=== PATIENT | female | born 1960 | race Caucasian/White ===

== ENCOUNTER 2019-12-29 10:27 | Outpatient (CLI) | payer MEDICARE, SELFPAY ==
--- NOTE | 2019-12-29 10:29 | MM_ITS ---
WS: [id number] BILATERAL DIGITAL DIAGNOSTIC MAMMOGRAM MAMMOGRAPHY WITH CAD CLINICAL INFORMATION: HX OF BREAST CA HISTORY: Right breast pain COMPARISON: TECHNIQUE: Bilateral CC, MLO, and ML views. FINDINGS: Scattered fibroglandular densities bilaterally. Lucent centered calcification. Asymmetric density rig ht breast along the posterior nipple line appears new or progressed from previous. Recommend spot com pression views and ultrasound for further evaluation. Left breast is unchanged. Treatment-related changes right breast. MM/[place] [id number] IMPRESSION: BI-RADS: 0-Incomplete: Need additional imaging evaluation FOLLOW UP: Need Additional Imaging
== END 2019-12-29 10:28 | disposition home or self-care (01) ==
LOC: RADSHAW 10:27
PROVIDERS: Family Provider Family Medicine; PCP Family Medicine; Visit Provider Family Medicine
DX: Z85.3 Personal history of malignant neoplasm of breast (principal)
CPT/HCPCS: 77066

== ENCOUNTER 2020-01-15 10:32 | Outpatient (CLI) | payer MEDICARE, MEDICAID, SELFPAY ==
--- NOTE | 2020-01-15 10:41 | US_ITS ---
WS: [id number] RIGHT DIGITAL MAMMOGRAPHY WITH CAD CLINICAL INFORMATION: RT BREAST ASYMMETRIC DENSITY COMPARISON: December 29, 2019 TECHNIQUE: 2 views of the right breast were obtained. FINDINGS: Scattered fibroglandular densities of the right breast. Lucent centered calcifications. Again seen is the 8 mm asymmetric density right breast along the posterior nipple line. This persists on spot compression views. Ultrasound is pending. ULTRASOUND BREAST RIGHT TECHNIQUE: Ultrasound right breast focused area of concern. CLINICAL INFORMATION: RT BREAST ASYMMETRIC DENSITY COMPARISON: None. FINDINGS: Ultrasound right breast at the 10:00 position. There is a slightly irregular hypoechoic lesion measur ing 1.0 x 0.6 x 0.8 cm. This lesion is indeterminant and recommend further evaluation with ultrasound -guided biopsy. US/US breast RT limited* [id number] IMPRESSION: BI-RADS: 4B-Suspicious: Intermediate FOLLOW UP: US Guided Biopsy Recommended
== END 2020-01-15 10:33 | disposition home or self-care (01) ==
LOC: RADSHAW 10:41
PROVIDERS: Family Provider Family Medicine; PCP Family Medicine; Visit Provider Family Medicine
DX: N64.89 Other specified disorders of breast (principal); N64.9 Disorder of breast, unspecified
CPT/HCPCS: 76642; 77065

== ENCOUNTER 2020-01-22 12:03 | Outpatient (CLI) | payer MEDICARE, MEDICAID, SELFPAY | END 2020-01-22 12:04 | disposition home or self-care (01) | LOC: RAD 12:07 | PROVIDERS: Family Provider Family Medicine; PCP Family Medicine; Visit Provider Family Medicine | DX: Z01.89 Encounter for other specified special examinations (principal) ==

== ENCOUNTER → 2020-03-25 15:00 | Outpatient (BNVA) | payer OTHER, MEDICAID, SELFPAY | PROVIDERS: Family Provider Family Medicine; PCP Family Medicine; Referring Provider Family Medicine; Visit Provider Obstetrics & Gynecology | DX: N81.10 Cystocele, unspecified (principal) | CPT/HCPCS: 80053 ==

== ENCOUNTER 2021-01-20 12:43 | Outpatient (CLI) | payer OTHER, MEDICAID, SELFPAY ==
--- NOTE | 2021-01-20 12:58 | MM_ITS ---
WS: [id number] BILATERAL DIGITAL DIAGNOSTIC MAMMOGRAM MAMMOGRAPHY WITH CAD CLINICAL INFORMATION: HX OF BREAST CANCER COMPARISON: December 29, 2019 TECHNIQUE: Bilateral CC, MLO, and ML views. FINDINGS: Scattered fibroglandular densities bilaterally. A few punctate calcifications are unchanged. Lucent c entered calcifications. Previously described 8 mm lesion along the posterior nipple line is persisten t but less dense today. Breast parenchyma is otherwise unchanged in appearance. Previously described hypoechoic lesion at the 10:00 position was previously evaluated and recommend f or biopsy. This does not appear to have been performed. Recommend ultrasound for further evaluation a nd comparison to previous. MM/[place] [id number] IMPRESSION: BI-RADS: 0-Incomplete: Need additional imaging evaluation FOLLOW UP: Need Additional Imaging Recommend right breast diagnostic mammography and ultrasound with attention to the previously described lesion on the prior examinations January 15, 2020 10:00 position
== END 2021-01-20 12:44 | disposition home or self-care (01) ==
LOC: RADSHAW 12:49
PROVIDERS: PCP Family Medicine; Visit Provider Family Medicine
DX: Z85.3 Personal history of malignant neoplasm of breast (principal); R92.1 Mammographic calcification found on diagnostic imaging of breast
CPT/HCPCS: 77066

== ENCOUNTER 2021-01-30 08:09 | Outpatient (CLI) | payer OTHER, MEDICAID, SELFPAY ==
--- NOTE | 2021-01-30 08:18 | US_ITS ---
WS: [id number] RIGHT DIGITAL MAMMOGRAPHY WITH CAD CLINICAL INFORMATION: RIGHT BREAST NODULE COMPARISON: January 20, 2021 TECHNIQUE: 2 views of the right breast were obtained. FINDINGS: Scattered fibroglandular densities of the right breast. A few punctate calcifications. Lucent centere d calcifications. 8 mm lesion along the posterior nipple line is persistent . This appears stable sin ce January 20, 2021 and stable since January 15, 2020. Ultrasound is pending. ULTRASOUND BREAST RIGHT TECHNIQUE: Ultrasound right breast focused area of concern. CLINICAL INFORMATION: RIGHT BREAST NODULE COMPARISON: Ultrasound January 15, 2020 FINDINGS: Ultrasound right breast 8 to 12:00 position. There is an ill-defined hypoechoic lesion with shadowing measuring approximately 9.7 x 5.8 x 4.2 mm. This is located at the 10:00 position approximately 1 cm from the nipple. This is similar in location and appearance to the previously described lesion January 15, 2020. This was previously scheduled for biopsy January 2020 but was unable to be located for biops y. Considering 12 month stability, recommend 6 month follow-up right diagnostic mammography and ultrasou nd. Alternatively, if additional patient or practitioner concern this could be further evaluated with ultrasound-guided biopsy. US/US breast RT limited* [id number] IMPRESSION: BI-RADS: 3-Probably Benign FOLLOW UP: 6 Month Follow-up RECOMMEND 6 MONTH FOLLOW-UP RIGHT DIAGNOSTIC MAMMOGRAPHY AND ULTRASOUND.
== END 2021-01-30 08:10 | disposition home or self-care (01) ==
LOC: RADSHAW 08:14
PROVIDERS: PCP Family Medicine; Visit Provider Family Medicine
DX: N63.0 Unspecified lump in unspecified breast (principal)
CPT/HCPCS: 76642; 77065

== ENCOUNTER 2021-09-08 07:54 | Outpatient (CLI) | payer OTHER, MEDICAID, SELFPAY ==
--- NOTE | 2021-09-08 08:02 | MM_ITS ---
WS: [id number] DIAGNOSTIC RIGHT DIGITAL MAMMOGRAM WITH CAD HISTORY: ABNORMAL MAMMOGRAM RT BREAST COMPARISON: 01/20/2021, 12/29/2019, 01/26/2019, 01/19/2018, 01/30/2021 Technique: CC, MLO and ML views. Spot compression RIGHT MLO. Breast composition: There are scattered areas of fibroglandular density. The irregular asymmetry in the anterior RIGHT breast posterior to the nipple persists and has been present and stable since 12/29. No progression or change in size. Additional benign calcifications. MM/[place] [id number] IMPRESSION: BI-RADS: 3-Probably Benign FOLLOW UP: 6 Month Follow-up Patient to return in 6 months for annual screening mammogram. In January 2022 viky ateral mammography should be performed with diagnostic imaging of the RIGHT ancelmo ast.
== END 2021-09-08 07:55 | disposition home or self-care (01) ==
LOC: RADSHAW 07:58
PROVIDERS: PCP Family Medicine; Visit Provider Family Medicine
DX: R92.8 Other abnormal and inconclusive findings on diagnostic imaging of breast (principal)
CPT/HCPCS: 77065

== ENCOUNTER 2022-09-01 10:20 | Outpatient (CLI) | payer MEDICARE, MEDICAID, SELFPAY ==
--- NOTE | 2022-09-01 10:34 | MM_ITS ---
WS: [id number] SCREENING DIGITAL TOMOSYNTHESIS MAMMOGRAM WITH CAD HISTORY: HX OF BREAST CA COMPARISON: 09/08/2021, 01/30/2021, 01/20/2021, 11/27/2016 Bilateral CC and MLO with tomosynthesis views submitted. Synthetic mammography reviewed. Computer aid ed detection analyzed. Breast composition: There are scattered areas of fibroglandular density. No suspicious masses, microc alcifications or architectural distortion. No change in the asymmetry in the RIGHT breast. Benign shmuel cifications in the RIGHT breast. MM/[place] [id number] IMPRESSION: BI-RADS: 2-Benign FOLLOW UP: 1 Year Follow-up
== END 2022-09-01 10:21 | disposition home or self-care (01) ==
PROVIDERS: PCP Family Medicine; Visit Provider Family Medicine
DX: Z85.3 Personal history of malignant neoplasm of breast (principal)
CPT/HCPCS: 77062

== ENCOUNTER 2023-10-05 10:01 | Outpatient (CLI) | payer MEDICARE, MEDICAID, SELFPAY ==
--- NOTE | 2023-10-05 10:23 | MM_ITS ---
WS: [id number] DIAGNOSTIC BILATERAL DIGITAL BREAST TOMOSYNTHESIS MAMMOGRAPHY WITH CAD HISTORY: ANNUAL - HX BR CA COMPARISON: 09/01/2022, 09/08/2021, 01/20/2021 TECHNIQUE: Bilateral craniocaudad, mediolateral oblique, and mediolateral views are submitted with to mosynthesis and SM. Computer aided detection utilized. Breast composition: There are scattered areas of fibroglandular density. Volume loss and post surgica l and posttreatment changes involving the RIGHT breast. There is overlying skin thickening. Benign ca lcifications. Asymmetry is stable in the anterior RIGHT breast over multiple years. LEFT breast is ne gative. IMPRESSION: MM/[place] [id number] BI-RADS: 2-Benign FOLLOW UP: 1 Year Follow-up
== END 2023-10-05 10:02 | disposition home or self-care (01) ==
PROVIDERS: PCP Family Medicine; Visit Provider Family Medicine
DX: Z85.3 Personal history of malignant neoplasm of breast (principal)
CPT/HCPCS: 77062; G0279

== ENCOUNTER → 2024-04-05 13:44 | Outpatient (BNVA) | payer MEDICARE, MEDICAID, SELFPAY | PROVIDERS: PCP Family Medicine; Visit Provider Nurse Practitioner Family | DX: D48.5 Neoplasm of uncertain behavior of skin (principal); L81.4 Other melanin hyperpigmentation | CPT/HCPCS: 11102; 99203 ==

== ENCOUNTER → 2024-05-04 10:22 | Outpatient (BNVA) | payer MEDICARE, MEDICAID, SELFPAY | PROVIDERS: PCP Family Medicine; Visit Provider Dermatology | DX: C43.61 Malignant melanoma of right upper limb, including shoulder (principal) | CPT/HCPCS: 11604; 12034 ==

== ENCOUNTER 2024-05-30 13:15 | Outpatient (CLI) | payer MEDICARE, SELFPAY ==
--- NOTE | 2024-05-30 13:19 | XR_ITS ---
WS: [id number] SCREENING DEXA SCAN [employer] CLINICAL INFORMATION: ASYMPTOMATIC MENOPAUSAL STATE COMPARISON: 2012 FINDINGS: The L1-L4 bone mineral density measures 1.572 g/cm2. This corresponds to a T score score of 3.3 and Z score of 3.7. Left femoral neck bone mineral density measures 1.242 g/cm2. This corresponds to a T score of 1.9 and Z score of 2.3. Right femoral neck bone mineral density measures 1.261 g/cm2. This corresponds to a T score 2.0of and Z score of 2.5. Mean femoral neck bone mineral density measures 1.252 g/cm2. This corresponds to a T score of 1.9 and Z score of 2.4. XR/XR DEXA axial skeleton* [id number] IMPRESSION: Normal bone mineralization. Patient's FRAX calculated 10 year probability for major osteoporotic fracture i s 10.3% and osteoporotic hip fracture is 0.2%. Bone mineral density increased 14.2% lumbar spine. Bone mineral density increased 3.0% femoral necks.
== END 2024-05-30 13:16 | disposition home or self-care (01) ==
PROVIDERS: PCP Family Medicine; Visit Provider Family Medicine
DX: Z78.0 Asymptomatic menopausal state (principal)
CPT/HCPCS: 77080

== ENCOUNTER 2024-06-06 11:29 | Outpatient (CLI) | payer MEDICARE, SELFPAY ==
--- NOTE | 2024-06-06 11:32 | XRR_ITS ---
PROCEDURE INFORMATION: Exam: XR Right Hip Exam date and time: 06/06/2024 11:43 AM Age: 64 years old Clinical indication: Hip pain; Right hip; Patient HX: HX of breast cancer and melanoma; Additional info: Pain in right hip (m25.551), include pelvis view TECHNIQUE: Imaging protocol: Radiologic exam of the right hip. Views: 1 view hip with pelvis when performed. COMPARISON: CR XR lumbar spine 2-3V* [id number] 06/06/2024 11:43 AM FINDINGS: Bones/joints: Mild articular surface narrowing and spurring. No fracture or dislocation. No acute osseous or joint abnormality. No acute fracture. Soft tissues: Unremarkable. XR/XR hip RT 2-3V wo/w pel* [id number] IMPRESSION: No acute findings.
--- NOTE | 2024-06-06 11:40 | XRR_ITS ---
PROCEDURE INFORMATION: Exam: XR Lumbosacral Spine Exam date and time: 06/06/2024 11:43 AM Age: 64 years old Clinical indication: Pain; Sciatica; Right; Patient HX: HX of breast cancer and melanoma TECHNIQUE: Imaging protocol: Radiologic exam of the lumbosacral spine. Views: 2 or 3 views. COMPARISON: CR XR hip RT 2-3V wo/w pel* [id number] 06/06/2024 11:43 AM FINDINGS: Bones/joints: Disc space narrowing and spurring L2 through S1. Anatomic alignment. Pedicles are intact. No fracture or acute bone destruction. Soft tissues: The perivertebral soft tissues are normal.. No acute fracture. Normal alignment. XR/XR lumbar spine 2-3V* [id number] IMPRESSION: Degenerative changes.
== END 2024-06-06 11:30 | disposition home or self-care (01) ==
LOC: RAD 11:31
PROVIDERS: PCP Family Medicine; Visit Provider Family Medicine
DX: M54.30 Sciatica, unspecified side (principal); M25.551 Pain in right hip
CPT/HCPCS: 72100; 73502

== ENCOUNTER → 2024-08-03 14:29 | Outpatient (BNVA) | payer MEDICARE, SELFPAY | PROVIDERS: PCP Family Medicine; Visit Provider Nurse Practitioner Family | DX: L24.9 Irritant contact dermatitis, unspecified cause (principal); L82.1 Other seborrheic keratosis; D18.01 Hemangioma of skin and subcutaneous tissue; Z85.820 Personal history of malignant melanoma of skin | CPT/HCPCS: 99213 ==

== ENCOUNTER 2024-11-06 10:43 | Outpatient (CLI) | payer MEDICARE, SELFPAY ==
--- NOTE | 2024-11-06 10:46 | MM_ITS ---
WS: [id number] Bilateral diagnostic 3D tomosynthesis digital mammogram, 11/06/2024 Clinical Data: HX OF BReast ca Comparison: 10/05/2023, 09/01/2022, 09/08/2021, 01/30/2021, 01/20/2021, 01/15/2020, 12/29/2019, 01/26/2019, 01/19/2018, 03/15/2017, 11/27/2016, 11/25/2015, 11/14/2014, 09/25/2013, 09/22/2012, 09/10/2011, 03/18/2011, , 06/24/2010, 06/09/2010. Findings: The right breast is smaller than the left and there is anterior skin thickening on the right. The lef t breast is normal. There are scattered benign calcifications in the right breast. MM/MM diag BI tomosynthesis [id number] Impression: BIRADS: 2 - Benign. FOLLOW UP: 1 Year Follow-up The CAD formula checker was used
== END 2024-11-06 10:44 | disposition home or self-care (01) ==
LOC: RAD 10:45
PROVIDERS: PCP Family Medicine; Visit Provider Family Medicine
DX: Z85.3 Personal history of malignant neoplasm of breast (principal); R92.1 Mammographic calcification found on diagnostic imaging of breast; R23.4 Changes in skin texture
CPT/HCPCS: 77062; G0279

== ENCOUNTER → 2024-11-21 14:06 | Outpatient (BNVA) | payer MEDICARE, SELFPAY | PROVIDERS: PCP Family Medicine; Visit Provider Nurse Practitioner Family | DX: L24.9 Irritant contact dermatitis, unspecified cause (principal); L81.4 Other melanin hyperpigmentation; L82.1 Other seborrheic keratosis; D22.5 Melanocytic nevi of trunk; Z08 Encounter for follow-up examination after completed treatment for malignant neoplasm; Z85.820 Personal history of malignant melanoma of skin; L57.0 Actinic keratosis | CPT/HCPCS: 17000; 99213 ==

== ENCOUNTER → 2025-05-22 13:53 | Outpatient (BNVA) | payer MEDICARE, SELFPAY | PROVIDERS: PCP Family Medicine; Visit Provider Nurse Practitioner Family | DX: L81.4 Other melanin hyperpigmentation (principal); D22.5 Melanocytic nevi of trunk; L82.1 Other seborrheic keratosis; Z08 Encounter for follow-up examination after completed treatment for malignant neoplasm; Z85.820 Personal history of malignant melanoma of skin; D48.5 Neoplasm of uncertain behavior of skin | CPT/HCPCS: 11102; 99213 ==